=== PATIENT | female | born 1960 | race Caucasian/White ===

== ENCOUNTER → 2023-11-15 15:49 | Outpatient (REF) | payer OTHER, SELFPAY | LOC: DHCBS MAIN 15:49 | PROVIDERS: ATTENDING PHYSICIAN Physician Assistant | DX: I25.10 Atherosclerotic heart disease of native coronary artery without angina pectoris (principal); I50.30 Unspecified diastolic (congestive) heart failure; I42.9 Cardiomyopathy, unspecified | CPT/HCPCS: 93306 ==